=== PATIENT | male | born 1990 | race Caucasian/White ===

== ENCOUNTER 2018-01-23 20:45 | Emergency (ER) | payer OTHER ==
[2018-01-23 20:59] VITALS: BP 144/89; PULSE 63; RESP 16; TEMP 98.3; O2SAT 100
--- NOTE | 2018-01-23 21:04 | ED PDOC ---
HPI: Skin/Bite Injury Time Seen by Provider: 01/23/18 21:03 Chief Complaint (Nursing): Abnormal Skin Integrity Chief Complaint (Provider): rash History Per: Patient Additional Complaint(s): 27-year-old male presents to emergency department with painful rash to left flank region that he first noticed 2 days ago. Patient denies fever or chills. He states he was applying Neosporin to rash which has not helped. Patient denies history of similar symptoms. PMD: none Past Medical History Reviewed: Historical Data, Nursing Documentation, Vital Signs Vital Signs: Last Vital Signs Temp 98.3 F 01/23/18 20:56 Pulse 63 01/23/18 20:56 Resp 16 01/23/18 20:56 BP 144/89 01/23/18 20:56 Pulse Ox 100 01/23/18 21:15 - Medical History PMH: No Chronic Diseases - Family History Family History: States: No Known Family Hx - Living Arrangements Living Arrangements: With Friends/Others - Social History Current smoker - smoking cessation education provided: No Drugs: Denies - Home Medications Home Medications: Ambulatory Orders Medication Instructions Recorded valACYclovir [Valtrex] 1 gm PO TID #21 tab 01/23/18 - Allergies Allergies/Adverse Reactions: Allergies Allergy/AdvReac Type Severity Reaction Status Date / Time No Known Allergies Allergy Verified 01/23/18 20:55 Review of Systems ROS Statement: Except As Marked, All Systems Reviewed And Found Negative Constitutional: Negative for: Fever Skin: Positive for: Rash Physical Exam - Reviewed Nursing Documentation Reviewed: Yes Vital Signs Reviewed: Yes - Physical Exam Appears: Positive for: Well, Non-toxic, No Acute Distress Skin: Positive for: Rash (Vesicular rash on erythematous base noted to left flank region, appearance consistent with herpes zoster) Cardiovascular/Chest: Positive for: Regular Rate, Rhythm Respiratory: Positive for: Normal Breath Sounds Neurologic/Psych: Positive for: Alert, Oriented - ECG O2 Sat by Pulse Oximetry: 100 Pulse Ox Interpretation: Normal Medical Decision Making Medical Decision Making: Impression: Shingles Plan: PO acyclovir in ED Pain meds declined in ED. Prescription given for Valtrex. Patient was advised to take Tylenol or Advil for pain as needed. Patient was referred to clinic for follow up. Disposition - Clinical Impression Clinical Impression: Shingles - Patient ED Disposition Is Patient to be Admitted: No Counseled Patient/Family Regarding: Diagnosis, Need For Followup, Rx Given - Disposition Referrals: [facility] [place] [Outside] Disposition: Routine/Home Disposition Time: 21:14 Condition: STABLE Additional Instructions: Take prescription medications as directed. [id number] Tylenol or Advil for pain as needed. Follow-up with clinic. Prescriptions: valACYclovir [Valtrex] 1 gm PO TID #21 tab Instructions: Karen (DC) Forms: [employer] (Persian)
== END 2018-01-23 21:47 | disposition home or self-care (01) ==
LOC: H.ER 20:45
DX: B02.9 Zoster without complications (principal)

== ENCOUNTER 2018-01-25 09:15 | Emergency (ER) | payer OTHER ==
[2018-01-25 09:59] VITALS: BP 131/86; PULSE 68; RESP 16; TEMP 98.7; O2SAT 100
--- NOTE | 2018-01-25 10:21 | ED PDOC ---
HPI: General Adult Time Seen by Provider: 01/25/18 09:58 Chief Complaint (Nursing): Abnormal Skin Integrity Chief Complaint (Provider): Shingles History Per: Patient History/Exam Limitations: no limitations Onset/Duration Of Symptoms: Days Current Symptoms Are (Timing): Still Present Additional Complaint(s): Pt. dx with shingles 2 days ago. Had symptoms of burning pain to the left abd since . Rash came Thurs. Denies any nausea, vomit, diarrhea, weakness, headaches, dizziness. Has pain on rash on left abd that goes to left back. Past Medical History Reviewed: Historical Data, Nursing Documentation, Vital Signs Vital Signs: Last Vital Signs Temp 98.7 F 01/25/18 09:56 Pulse 68 01/25/18 09:56 Resp 16 01/25/18 09:56 BP 131/86 01/25/18 09:56 Pulse Ox 100 01/25/18 09:56 - Medical History PMH: No Chronic Diseases - Surgical History Surgical History: No Surg Hx - Family History Family History: States: Unknown Family Hx - Living Arrangements Living Arrangements: With Family - Immunization History Hx Tetanus Toxoid Vaccination: No Hx Influenza Vaccination: No Hx Pneumococcal Vaccination: No - Home Medications Home Medications: Ambulatory Orders Medication Instructions Recorded valACYclovir [Valtrex] 1 gm PO TID #21 tab 01/23/18 Gabapentin 300 mg PO DAILY #11 capsule 01/25/18 Gabapentin [Neurontin] 300 mg PO DAILY #11 cap 01/25/18 Ibuprofen [Motrin] 600 mg PO TID 10 Days tab 01/25/18 - Allergies Allergies/Adverse Reactions: Allergies Allergy/AdvReac Type Severity Reaction Status Date / Time No Known Allergies Allergy Verified 01/23/18 20:55 Review of Systems Constitutional: Negative for: Fever, Weakness Eyes: Negative for: Vision Change Cardiovascular: Negative for: Chest Pain Respiratory: Negative for: Shortness of Breath Gastrointestinal: Positive for: Abdominal Pain. Negative for: Nausea, Vomiting Musculoskeletal: Negative for: Neck Pain, Shoulder Pain Skin: Positive for: Rash, Lesions Neurological: Negative for: Weakness, Numbness Physical Exam - Reviewed Nursing Documentation Reviewed: Yes Vital Signs Reviewed: Yes - Physical Exam Appears: Positive for: Non-toxic Head Exam: Positive for: ATRAUMATIC, NORMAL INSPECTION, NORMOCEPHALIC Skin: Positive for: Rash (L abd wall going into left back: in a dermatome pattern; stops midline frontal and posterior; few vesicles: rash shingles appearance and tender; no dc.) Eye Exam: Positive for: Normal appearance Neck: Positive for: Normal, Painless ROM, Supple Cardiovascular/Chest: Positive for: Regular Rate, Rhythm Respiratory: Positive for: CNT, Normal Breath Sounds Gastrointestinal/Abdominal: Positive for: Soft Back: Negative for: Normal Inspection Extremity: Positive for: Normal ROM. Negative for: Tenderness, Pedal Edema Neurologic/Psych: Positive for: Alert, Oriented - ECG O2 Sat by Pulse Oximetry: 100 Pulse Ox Interpretation: Normal - Progress ED Course And Treament: 1040: Stable. AAOx3. Pain controlled. Fu with pcp. Disposition - Clinical Impression Clinical Impression: Shingles - Patient ED Disposition Is Patient to be Admitted: No Counseled Patient/Family Regarding: Diagnosis, Need For Followup, Rx Given - Disposition Referrals: [facility] [Outside] - 01/27/18 Disposition: Routine/Home Disposition Time: 10:17 Condition: STABLE Additional Instructions: Return if not better in 3 days. Take your valtrex as prescribed. Prescriptions: Gabapentin [Neurontin] 300 mg PO DAILY #11 cap Gabapentin 300 mg PO DAILY #11 capsule Ibuprofen [Motrin] 600 mg PO TID 10 Days tab Instructions: Shingles Forms: [employer] (Chilean)
== END 2018-01-25 10:48 | disposition home or self-care (01) ==
LOC: H.ER 09:15
DX: B02.9 Zoster without complications (principal)
CPT/HCPCS: 96372; 99282; J1885